=== PATIENT | female | born 1990 | race Two or more races ===

== ENCOUNTER 2018-10-17 14:03 | Emergency (ER) | payer OTHER ==
[2018-10-17 14:38] VITALS: BMI 34.2
--- NOTE | 2018-10-17 15:13 | PDOC ---
History of Present Illness - General Chief Complaint: Urinary Problem Stated Complaint: URINE IN BLOOD Time Seen by Provider: 10/17/18 15:13 History Source: Patient Exam Limitations: No Limitations - History of Present Illness Initial Comments: 28 year old female with PMH depression, SI presented to ED for nausea, vomiting , diarrhea, generalized weakness, body aches x1 week. Pt reported she ingested rat poison in a suicide attempt 09/17/18, was admitted to [facility] until when she was discharged with a nausea medication. Pt admitted to rectal bleeding (blood mixed in stool and on toilet paper), hematuria. Pt denied fever , abdominal pain, chest pain, shortness of breath. ROS General: admitted to generalized weakness. denied fever, chills. HEENT: denied sore throat, rhinorrhea, ear pain. Cardiovascular: denied chest pain, palpitations, syncope, diaphoresis. Respiratory: denied shortness of breath, cough, sputum production, hemoptysis. Gastrointestinal: admitted to nausea, rectal bleeding. denied abdominal pain, vomiting, diarrhea, constipation. Genitourinary: admitted to hematuria. denied dysuria, increased urinary frequency, urinary incontinence, flank pain. Back: denied back pain. Musculoskeletal: denied joint pain, muscle pain, joint swelling. Neurological: denied headache, dizziness, numbness, tingling, weakness. Integumentary: denied rash, laceration, abrasion. Hematologic/Lymphatic: denied bruising or bleeding. PE Constitutional: Well-nourished, Well-developed, appearing stated age. HEENT: head is normocephalic, atraumatic. EOMI. PERRLA. Neck: supple. Full ROM. Cardiovascular: regular heart rhythm. no murmurs. no pericardial friction rub. Respiratory: clear to auscultation bilaterally. no crackles, rhonchi or wheezing. no stridor. Gastrointestinal: soft, nontender. normal bowel sounds. no rebound, guarding, masses. Extremities: peripheral pulses intact. no lower extremity edema. Neurological: CN 2-12 grossly intact. moves all four extremities. Psych: awake, alert, oriented x3. follows commands. answers questions appropriately. Recta: single nontender hemorrhoid. soft stool in vault. no gross blood on glove. Pelvic: normal external genitalia. no blood in vaginal canal. no CMT. no adnexal tenderness. Past History - Past Medical History Allergies/Adverse Reactions: Allergies Allergy/AdvReac Type Severity Reaction Status Date / Time No Known Allergies Allergy Verified 10/17/18 14:38 COPD: No Psychiatric Problems: Yes (depression) - Suicide/Smoking/Psychosocial Hx Smoking History: Never smoked *Physical Exam - Vital Signs Last Vital Signs Temp Pulse Resp BP Pulse Ox 98.4 F 105 H 20 160/87 98 10/17/18 14:35 10/17/18 14:35 10/17/18 14:35 10/17/18 14:35 10/17/18 14:35 ED Treatment Course - LABORATORY CBC & Chemistry Diagram: 10/17/18 15:29 10/17/18 15:29 Medical Decision Making - Medical Decision Making 28 year old female with above PMH presented to ED for nausea/vomiting/diarrhea, generalized weakness, blood in stool, hematuria. Pt was recently admitted to [facility] for rat poison ingestion 09/17/18-. Initial Vital Signs Temp Pulse Resp BP Pulse Ox 98.4 F 105 H 20 160/87 98 10/17/18 14:35 10/17/18 14:35 10/17/18 14:35 10/17/18 14:35 10/17/18 14:35 Afebrile. Tachycardia. No tachypnea. Hypertensive. No hypoxia on room air. Labs ordered: CBC, CMP, lipase, PT/INR, serum , UA/UC, salicyclate, serum acetminophen, urine drug screen Imaging ordered: none Medications ordered: none EKG performed at 1628: rate 89, regular rhythm, normal axis, normal intervals, biphasic T V2-V3. 10/17/18 16:00 [facility] Poison Control Contacted. They recommend: CBC, CMP, Ca, Coags, EKG, serum acetaminophen, serum salicyclate , Vitamin D Looking for: -Digoxin like rat poison -Prolonged INR 10/17/18 16:32 CBC WBC 10.3 K/mm3 (4.0-10.0) H 10/17/18 15:29 RBC 4.32 M/mm3 (3.60-5.2) 10/17/18 15:29 Hgb 12.0 GM/dL (10.7-15.3) 10/17/18 15:29 Hct 35.9 % (32.4-45.2) 10/17/18 15:29 MCV 83.2 fl (80-96) 10/17/18 15:29 MCH 27.8 pg (25.7-33.7) 10/17/18 15:29 MCHC 33.5 g/dl (32.0-36.0) 10/17/18 15:29 RDW 13.6 % (11.6-15.6) 10/17/18 15:29 Plt Count 350 K/MM3 (134-434) 10/17/18 15:29 MPV 7.7 fl (7.5-11.1) 10/17/18 15:29 Absolute Neuts (auto) 7.0 K/mm3 (1.5-8.0) 10/17/18 15:29 Neutrophils % 67.6 % (42.8-82.8) 10/17/18 15:29 Lymphocytes % 24.6 % (8-40) 10/17/18 15:29 Monocytes % 6.3 % (3.8-10.2) 10/17/18 15:29 Eosinophils % 0.5 % (0-4.5) 10/17/18 15:29 Basophils % 1.0 % (0-2.0) 10/17/18 15:29 Nucleated RBC % 0 % (0-0) 10/17/18 15:29 Mild leukocytosis, no left shift. No anemia. No thrombocytopenia. CMP Sodium 140 mmol/L (136-145) 10/17/18 15:29 Potassium 3.4 mmol/L (3.5-5.1) L 10/17/18 15:29 Chloride 104 mmol/L (98-107) 10/17/18 15:29 Carbon Dioxide 30 mmol/L (21-32) 10/17/18 15:29 Anion Gap 6 MMOL/L (8-16) L 10/17/18 15:29 BUN 12.3 mg/dL (7-18) 10/17/18 15:29 Creatinine 0.8 mg/dL (0.55-1.3) 10/17/18 15:29 Est GFR (CKD-EPI)AfAm 114.66 10/17/18 15:29 Est GFR (CKD-EPI)NonAf 98.93 10/17/18 15:29 Random Glucose 99 mg/dL (74-106) 10/17/18 15:29 Calcium 9.4 mg/dL (8.5-10.1) 10/17/18 15:29 Total Bilirubin 0.3 mg/dL (0.2-1) 10/17/18 15:29 AST 14 U/L (15-37) L 10/17/18 15:29 ALT 17 U/L (13-61) 10/17/18 15:29 Alkaline Phosphatase 69 U/L (45-117) 10/17/18 15:29 Total Protein 7.5 g/dl (6.4-8.2) 10/17/18 15:29 Albumin 4.2 g/dl (3.4-5.0) 10/17/18 15:29 Lipase 167 U/L (73-393) 10/17/18 15:29 Serum , Qual Negative 10/17/18 15:29 No clinically significant electrolyte abnormalities. No anion gap. No GIACOMO. No transaminitis. Lipase wnl. Serum testing negative. Serum acetaminophen and salicyclate level negative. 10/17/18 16:49 Urine Test Results Urine Color Yellow 10/17/18 15:43 Urine Appearance Turbid 10/17/18 15:43 Urine pH 7.0 (5.0-8.0) 10/17/18 15:43 Ur Specific [place] 1.025 (1.010-1.035) 10/17/18 15:43 Urine Protein Negative (NEGATIVE) 10/17/18 15:43 Urine Glucose (UA) Negative (NEGATIVE) 10/17/18 15:43 Urine Ketones Negative (NEGATIVE) 10/17/18 15:43 Urine Blood Negative (NEGATIVE) 10/17/18 15:43 Urine Nitrite Negative (NEGATIVE) 10/17/18 15:43 Urine Bilirubin Negative (NEGATIVE) 10/17/18 15:43 Ur Leukocyte Esterase Negative (NEGATIVE) 10/17/18 15:43 Negative for UTI. Negative for hematuria. Negative for proteinuria. 10/17/18 17:06 UDS positive for MDMA. Pt informed of results. Pt informed to F/U with PCP promptly. Pt expressed understanding. Pt discharged. *DC/Admit/Observation/Transfer Diagnosis at time of Disposition: Generalized body aches, Nausea vomiting and diarrhea - Discharge Dispostion Disposition: HOME Condition at time of disposition: Improved Decision to Admit order: No - Referrals - Patient Instructions Printed Discharge Instructions: DI for Suicidal Ideation-Adult, Nausea and Vomiting-Adult Additional Instructions: Your lab work was normal. Follow up with your primary care doctor within 3 days. Your care is not complete until you follow up. Bring all paperwork given to you today to your appointment. Return to the Emergency Department for increasing pain, shortness of breath, chest pain, easy bruising, bleeding, lightheadedness, passing out, fever, vomiting, suicidal thoughts, or any other new, worsening or concerning symptoms. Tu trabajo de laboratorio fue normal. Bindu un seguimiento con mixon mdico de atencin primaria dentro de los 3 mcdonald. Mixon atencin no estar completa hasta que realice el seguimiento. Traiga todos los documentos que le entregaron hoy a mixon brianna. Regrese al departamento de emergencias para aumentar el dolor, falta de aliento , dolor en el pecho, moretones fciles, sangrado, aturdimiento, desmayo, fiebre , vmitos, pensamientos suicidas o cualquier otro sntoma nuevo, que empeore o se relacione Print Language: MONTENEGRIN - Post Discharge Activity Forms/Work/School Notes: Back to Work
[2018-10-17] MEDS ORDERED: SODIUM CHLORIDE 1,000 ML IV STA (15:14)
[2018-10-17] MEDS ORDERED: ACETAMINOPHEN 1000 MG/100 ML VIAL (NON FORMULARY) IVPB ONE (15:14)
[2018-10-17] MEDS ORDERED: ACETAMINOPHEN INJECTION 100 ML IVPB ONE (15:28)
[2018-10-17 15:39] LABS: EOS % 0.5 % (0-4.5); HEMATOCRIT 35.9 % (32.4-45.2); LYMPH % 24.6 % (8-40); MCH 27.8 pg (25.7-33.7); MCHC 33.5 g/dl (32.0-36.0); MEAN CELL VOLUME 83.2 fl (80-96); MEAN PLT VOLUME 7.7 fl (7.5-11.1); MONO % 6.3 % (3.8-10.2); NEUT % 67.6 % (42.8-82.8); PLATELET COUNT 350 K/MM3 (134-434); RBC 4.32 M/mm3 (3.60-5.2); RDW 13.6 % (11.6-15.6); WHITE BLOOD COUNT 10.3 K/mm3 (4.0-10.0)
[2018-10-17 16:03] LABS: ALBUMIN 4.2 g/dl (3.4-5.0); BILIRUBIN,TOTAL 0.3 mg/dL (0.2-1); BLOOD UREA NITROGEN 12.3 mg/dL (7-18); CALCIUM 9.4 mg/dL (8.5-10.1); CREATININE 0.8 mg/dL (0.55-1.3); POTASSIUM 3.4 mmol/L (3.5-5.1); TOT PROT 7.5 g/dl (6.4-8.2)
[2018-10-17 16:17] LABS: PROTHROMBIN TIME (PATIENT) 11.8 SEC (9.7-13.0)
[2018-10-17 16:46] LABS: COCAINE, UR NEGATIVE ng/ml (CUTOFF=300); METHADONE, UR NEGATIVE ng/ml (CUTOFF=300); OPIATES, URI NEGATIVE ng/ml (CUTOFF=300); PHENCYCLIDINE,URINE NEGATIVE ng/ml (CUTOFF=25); URINE AMPHETAMINES NEGATIVE ng/ml (CUTOFF=500); URINE BARBITURATES NEGATIVE ng/ml (CUTOFF=200); URINE BENZODIAZEPINES NEGATIVE ng/ml (CUTOFF=200)
[2018-10-17 16:48] LABS: URINE APPEARANCE TURBID; URINE BILIRUBIN NEGATIVE (NEGATIVE); URINE COLOR YELLOW; URINE GLUCOSE (UA) NEGATIVE (NEGATIVE); URINE KETONE NEGATIVE (NEGATIVE); URINE LEUK ESTERASE NEGATIVE (NEGATIVE); URINE NITRITE NEGATIVE (NEGATIVE); URINE PROTEIN NEGATIVE (NEGATIVE)
--- NOTE | 2018-10-17 17:05 | PDOC ---
Documentation entered by Antonio Barbosa SCRIBE, acting as scribe for Julieta Garcia MD. Julieta Garcia MD: This documentation has been prepared by the Familia salcedo Xhesika, SCRIBE, under my direction and personally reviewed by me in its entirety. I confirm that the documentation accurately reflects all work, treatment, procedures, and medical decision making performed by me. Attending Attestation - Resident Resident Name: EllieFlorina - ED Attending Attestation I have performed the following: I have examined & evaluated the patient, The case was reviewed & discussed with the resident, I agree w/resident's findings & plan, Exceptions are as noted - HPI HPI: 10/17/18 15: 28 year old female, Persian speaking, with a significant PMH of depression and SI who presents to the emergency department for 1 week of nausea, vomiting, diarrhea, generalized weakness, and body aches. Patient states she ingested rat poison in a suicide attempt on 09/17/18, was seen and admitted to [facility] and was discharged on 10/09/18. Patient states she is now endorsing rectal bleeding in her stool and urine. Patient denies any other bleeding. denies any current SI or HI states she is recuperating with her kids. no flank pain, no abd pain. just generalized achiness. The patient denies chest pain, shortness of breath, headache and dizziness. Denies fever, chills, cough and constipation. Denies dysuria, frequency, urgency. Allergies: NKDA 10/17/18 17:02 - Physicial Exam PE: 10/17/18 17:02 awake alert lungs clear bilat heart rrr no mrg abd soft nt nd ext wwp no edema. no calf tenderness. nuero alert oriented x 3. no si no hi. speech clear calm, mild flat affect, but smiles when talking about kids. - Medical Decision Making 10/17/18 17:03 28 yo F h/o rat poison ingestion 09/17 dc 10/09 here with persistant hematuria. feeling tired and myalgia. plan labs ua guiac. pt no signs of suicidality. labs unremarkable. coags geraldo. guiac negative. urine negative for blod will perform pelvic exam r/o vaginal bleeding. negative. d/w poison control will likely dc home. Heart Score/ECG Review #1 General ECG Interpretation: Sinus Rhythm, Normal Rate, Normal Intervals, No acute ischemic changes
[2018-10-17 17:41] VITALS: BP 146/93; PULSE 81; TEMP 98.5
--- NOTE | 2018-10-18 09:39 | EKG ---
Test Reason : Blood Pressure : / mmHG Vent. Rate : 089 BPM Atrial Rate : 089 BPM P-R Int : 184 ms QRS Dur : 076 ms QT Int : 378 ms P-R-T Axes : 062 024 030 degrees QTc Int : 459 ms NORMAL SINUS RHYTHM NORMAL ECG NO PREVIOUS ECGS AVAILABLE Confirmed by JESUS LUCAS MD ([id number]) on 10/18/2018 9:38:52 AM Referred By: Confirmed By:JESUS LUCAS MD
== END 2018-10-17 17:40 | disposition home or self-care (01) ==
LOC: JER 14:03
PROC: 3E0337Z Introduction of Electrolytic and Water Balance Substance into Peripheral Vein, Percutaneous Approach (ICD-10-PCS; principal; 2018-10-17)
PROC: 3E033NZ Introduction of Analgesics, Hypnotics, Sedatives into Peripheral Vein, Percutaneous Approach (ICD-10-PCS; 2018-10-17)
DX: R11.2 Nausea with vomiting, unspecified (principal); R19.7 Diarrhea, unspecified; R52 Pain, unspecified; Z91.5 Personal history of self-harm
CPT/HCPCS: 36415; 80053; 80307; 81003; 82272; 82306; 83690; 84703; 85025; 85610; 85730; 86850; 86900; 86901; 87086; 93005; 93010; 96365; 96374; 99283-25; G0480; J0131; J7030

== ENCOUNTER 2021-12-03 07:29 | Emergency (ER) | payer OTHER ==
[2021-12-03 08:00] VITALS: BP 118/76; PULSE 77; RESP 18; TEMP 98.1; BMI 37.1
[2021-12-03] MEDS ORDERED: ACETAMINOPHEN 500 MG TABLET (FP) PO ONE (08:30)
[2021-12-03] MEDS ORDERED: ACETAMINOPHEN 325 MG TABLET (FP) ONE (08:39)
== END 2021-12-03 11:04 | disposition home or self-care (01) ==
LOC: JER 07:29
DX: M25.561 Pain in right knee (principal)
CPT/HCPCS: 73564-TC-RT-FY; 84703; 99284-25

== ENCOUNTER 2022-02-16 01:06 | Emergency (ER) | payer OTHER ==
[2022-02-16 01:27] VITALS: BP 140/76; PULSE 88; RESP 18; TEMP 97.8; BMI 37.1
== END 2022-02-16 02:40 | disposition home or self-care (01) ==
LOC: JER 01:06
DX: S90.32XA Contusion of left foot, initial encounter (principal); W20.8XXA Other cause of strike by thrown, projected or falling object, initial encounter
CPT/HCPCS: 73630-TC-LT; 99283-25

== ENCOUNTER 2022-03-15 23:58 | Emergency (ER) | payer OTHER ==
[2022-03-16 00:14] VITALS: BP 147/90; PULSE 83; RESP 15; TEMP 98.5; BMI 36.6
[2022-03-16 01:41] LABS: BASO % 0.5 % (0-2.0); EOS % 0.4 % (0-4.5); HEMATOCRIT 32.8 % (32.4-45.2); HEMOGLOBIN 10.4 GM/dL (10.7-15.3); LYMPH % 28.2 % (8-40); MCH 23.8 pg (25.7-33.7); MCHC 31.7 g/dl (32.0-36.0); MEAN CELL VOLUME 75.2 fl (80-96); MEAN PLT VOLUME 8.2 fl (7.5-11.1); MONO % 10.2 % (3.8-10.2); NEUT % 60.7 % (42.8-82.8); PLATELET COUNT 351 10^3/uL (134-434); RBC 4.36 M/mm3 (3.60-5.2); RDW 16.1 % (11.6-15.6); WHITE BLOOD COUNT 6.8 K/mm3 (4.0-10.0)
[2022-03-16 01:45] LABS: EPI CELLS 12 /uL (0-25.1); HYALINE CASTS 0 /uL (0-3.1); PH,URINE 7.5 (5.0-8.0); URINE APPEARANCE CLOUDY; URINE BACTERIA 450 /uL (0-1359); URINE BILIRUBIN NEGATIVE (NEGATIVE); URINE COLOR YELLOW; URINE GLUCOSE (UA) NEGATIVE (NEGATIVE); URINE KETONE NEGATIVE (NEGATIVE); URINE LEUK ESTERASE NEGATIVE (NEGATIVE); URINE NITRITE NEGATIVE (NEGATIVE); URINE PROTEIN NEGATIVE (NEGATIVE); URINE RBC 10 /uL (0-23.9); URINE WBC 10 /uL (0-25.8)
[2022-03-16 02:03] LABS: ALBUMIN 3.7 g/dl (3.4-5.0); BLOOD UREA NITROGEN 8.6 mg/dL (7-18); CALCIUM 9.3 mg/dL (8.5-10.1)
[2022-03-16 02:05] LABS: CREATININE 0.6 mg/dL (0.55-1.3)
[2022-03-16 02:07] LABS: BILIRUBIN,TOTAL 0.4 mg/dL (0.2-1); TOT PROT 7.3 g/dl (6.4-8.2)
[2022-03-16 02:23] LABS: HCG,QUALITATIVE URINE Negative
[2022-03-16] MEDS ORDERED: NITROFURANTOIN MACROCRYSTAL 50 MG CAPSULE (FP) ONE (03:43)
[2022-03-16] MEDS ORDERED: NITROFURANTOIN MACROCRYSTAL 50 MG CAPSULE (FP) PO SCH (03:45)
== END 2022-03-16 04:19 | disposition home or self-care (01) ==
LOC: JER 23:58
DX: N39.0 Urinary tract infection, site not specified (principal)
CPT/HCPCS: 36415; 80053; 81003; 83690; 83735; 84703; 85025; 87086; 99283-25

== ENCOUNTER 2022-07-30 08:02 | Day surgery (SDC) | payer OTHER ==
[2022-07-30 08:11] VITALS: BMI 36.6
[2022-07-30] MEDS ORDERED: SODIUM CHLORIDE 1,000 ML IV STA (08:48)
[2022-07-30] MEDS ORDERED: ONDANSETRON 4 MG/2 ML VIAL IVPUSH ONE (08:48)
[2022-07-30] MEDS ORDERED: MAG HYDROX/AL HYDROX/SIMETH 30 ML UNIT-DOSE CUP PO ONE (08:48)
[2022-07-30] MEDS ORDERED: ACETAMINOPHEN 1000 MG/100 ML BAG IVPB ONE (08:48)
[2022-07-30] MEDS ORDERED: FAMOTIDINE 20 MG/50 ML IVPB 20 MG/50 ML MG IVPB ONE ×2 (08:49→09:25)
[2022-07-30] MEDS ORDERED: MAG HYDROX/AL HYDROX/SIMETH 30 ML UNIT-DOSE CUP ONE (09:25)
[2022-07-30] MEDS ORDERED: ONDANSETRON 4 MG/2 ML VIAL ONE ×2 (09:25→19:21)
[2022-07-30] MEDS ORDERED: ACETAMINOPHEN INJECTION 100 ML IVPB ONE ×2 (09:25→20:49)
[2022-07-30 09:52] LABS: URINE APPEARANCE CLEAR; URINE BILIRUBIN NEGATIVE (NEGATIVE); URINE COLOR YELLOW; URINE GLUCOSE (UA) NEGATIVE (NEGATIVE); URINE KETONE NEGATIVE (NEGATIVE); URINE LEUK ESTERASE NEGATIVE (NEGATIVE); URINE NITRITE NEGATIVE (NEGATIVE); URINE PROTEIN NEGATIVE (NEGATIVE); URINE UROBILINOGEN 0.2 mg/dL (0.2-1.0)
[2022-07-30 09:58] LABS: BASO % 0.4 % (0-2.0); EOS % 0.7 % (0-4.5); HEMATOCRIT 33.4 % (32.4-45.2); HEMOGLOBIN 10.5 GM/dL (10.7-15.3); LYMPH % 32.5 % (8-40); MCH 23.5 pg (25.7-33.7); MCHC 31.5 g/dl (32.0-36.0); MEAN CELL VOLUME 74.6 fl (80-96); MEAN PLT VOLUME 8.2 fl (7.5-11.1); MONO % 7.2 % (3.8-10.2); NEUT % 59.2 % (42.8-82.8); PLATELET COUNT 374 10^3/uL (134-434); RBC 4.47 M/mm3 (3.60-5.2); RDW 15.8 % (11.6-15.6); WHITE BLOOD COUNT 9.5 K/mm3 (4.0-10.0)
[2022-07-30 10:02] LABS: POTASSIUM 3.8 mmol/L (3.5-5.1)
[2022-07-30 10:04] LABS: CALCIUM 9.2 mg/dL (8.5-10.1)
[2022-07-30 10:05] LABS: ALBUMIN 3.9 g/dl (3.4-5.0)
[2022-07-30 10:08] LABS: CREATININE 0.5 mg/dL (0.55-1.3)
[2022-07-30 10:09] LABS: TOT PROT 7.4 g/dl (6.4-8.2)
[2022-07-30 10:10] LABS: BILIRUBIN,TOTAL 0.4 mg/dL (0.2-1)
[2022-07-30 10:11] LABS: BLOOD UREA NITROGEN 9.4 mg/dL (7-18)
[2022-07-30] MEDS ORDERED: CEFTRIAXONE 1,000 MG in DEXTROSE 5%-WATER - 50 ML IVPB ONE (11:55)
[2022-07-30] MEDS ORDERED: CEFTRIAXONE 1 GM/50 ML BAG ONE (12:20)
[2022-07-30] MEDS ORDERED: ONDANSETRON 4 MG/2 ML VIAL IVPUSH PRN ×2 (12:41→20:48)
[2022-07-30] MEDS ORDERED: LACTATED RINGERS SOLUTION 1,000 ML/1,000 ML INFUS.BAG IV SCH (12:45)
[2022-07-30] MEDS ORDERED: DEXAMETHASONE SOD PHOSPHATE 4 MG/1 ML VIAL ONE (19:21)
[2022-07-30] MEDS ORDERED: PROPOFOL 20 ML ONE (19:21)
[2022-07-30] MEDS ORDERED: KETOROLAC TROMETHAMINE 30 MG/1 ML VIAL ONE (19:22)
[2022-07-30] MEDS ORDERED: oxyCODONE HCL 5 MG TABLET PO PRN ×2 (19:30→20:48)
[2022-07-30] MEDS ORDERED: LACTATED RINGERS SOLUTION 1,000 ML IV SCH ×2 (19:30→20:48)
[2022-07-30] MEDS ORDERED: SUGAMMADEX SODIUM 200 MG/2 ML VIAL ONE (19:43)
[2022-07-30] MEDS ORDERED: ROCURONIUM BROMIDE 50 MG/5 ML SYRINGE ONE (19:43)
[2022-07-30] MEDS ORDERED: BUPIVACAINE HCL/PF 0.5% (5MG/ML) 10 ML VIAL IJ ONE ×2 (19:58)
[2022-07-30] MEDS: ACETAMINOPHEN 1000 MG/100 ML BAG IVPB SCH ×2 (20:48→20:53)
[2022-07-30] MEDS: HEPARIN NA (PORCINE) 5,000 UNITS/ML 1ML VIAL SQ SCH (23:39)
[2022-07-31] MEDS: ACETAMINOPHEN 1000 MG/100 ML BAG IVPB SCH (03:00)
[2022-07-31] MEDS: KETOROLAC TROMETHAMINE 15 MG/ML VIAL IVPUSH SCH ×2 (06:54→12:38)
[2022-07-31 07:46] LABS: BASO % 0.2 % (0-2.0); HEMATOCRIT 32.4 % (32.4-45.2); HEMOGLOBIN 10.2 GM/dL (10.7-15.3); LYMPH % 8.9 % (8-40); MCH 23.7 pg (25.7-33.7); MCHC 31.4 g/dl (32.0-36.0); MEAN CELL VOLUME 75.4 fl (80-96); MEAN PLT VOLUME 8.2 fl (7.5-11.1); MONO % 2.1 % (3.8-10.2); NEUT % 88.8 % (42.8-82.8); PLATELET COUNT 360 10^3/uL (134-434); RDW 16.1 % (11.6-15.6); WHITE BLOOD COUNT 10.8 K/mm3 (4.0-10.0)
[2022-07-31 07:55] LABS: POTASSIUM 4.3 mmol/L (3.5-5.1)
[2022-07-31 07:58] LABS: BLOOD UREA NITROGEN 4.8 mg/dL (7-18)
[2022-07-31 08:01] LABS: CREATININE 0.5 mg/dL (0.55-1.3)
[2022-07-31] MEDS ORDERED: ACETAMINOPHEN 500 MG TABLET (FP) PO SCH (10:00)
[2022-07-31] MEDS: HEPARIN NA (PORCINE) 5,000 UNITS/ML 1ML VIAL SQ SCH (10:02)
[2022-07-31 13:33] VITALS: BP 139/65; PULSE 71; RESP 20; TEMP 97.9
== END 2022-07-31 14:09 | disposition home or self-care (01) ==
LOC: JER 08:02 → JASUSAT 11:56 → SUATTDRO 11:56 → J7W 18:43 → JASUSAT 07-31 14:09
PROVIDERS: ATTEND Internal Medicine
PROC: 0FT44ZZ Resection of Gallbladder, Percutaneous Endoscopic Approach (ICD-10-PCS; principal; 2022-07-30 12:30)
DX: K80.10 Calculus of gallbladder with chronic cholecystitis without obstruction (principal)
CPT/HCPCS: 36415; 76705-TC; 80048; 80053; 81003; 83690; 84703; 85025; 86850; 86900; 86901; 87086; 88304-TC; 94760; 99285-25; J1644

== ENCOUNTER 2023-09-17 15:12 | Emergency (ER) | payer OTHER ==
[2023-09-17 15:21] VITALS: BP 120/79; PULSE 82; RESP 20; TEMP 98.6; BMI 36.6
[2023-09-17] MEDS ORDERED: ACETAMINOPHEN INJECTION 100 ML IVPB ONE (17:31)
[2023-09-17] MEDS ORDERED: FAMOTIDINE 20 MG/50 ML IVPB 20 MG/50 ML MG IVPB ONE (17:31)
[2023-09-17 17:45] LABS: EPI CELLS 27 /uL (0-25.1); HYALINE CASTS 0 /uL (0-3.1); PH,URINE 7.5 (5.0-8.0); URINE APPEARANCE CLOUDY; URINE BACTERIA 1386 /uL (0-1359); URINE BILIRUBIN NEGATIVE (NEGATIVE); URINE COLOR YELLOW; URINE GLUCOSE (UA) NEGATIVE (NEGATIVE); URINE KETONE NEGATIVE (NEGATIVE); URINE LEUK ESTERASE NEGATIVE (NEGATIVE); URINE NITRITE NEGATIVE (NEGATIVE); URINE PROTEIN NEGATIVE (NEGATIVE); URINE RBC 12 /uL (0-23.9); URINE WBC 11 /uL (0-25.8)
[2023-09-17 17:46] LABS: HCG,QUALITATIVE URINE Negative
[2023-09-17] MEDS: SODIUM CHLORIDE 0.9% 500 ML INFUS.BAG IV ONE (17:48)
[2023-09-17] MEDS: ACETAMINOPHEN 1000 MG/100 ML BAG IVPB ONE (17:48)
[2023-09-17] MEDS: FAMOTIDINE 20 MG/50 ML IVPB 20 MG/50 ML MG IVPB ONE (17:49)
[2023-09-17 17:53] LABS: *STOOL FOR OCCULT BLOOD POSITIVE (NEGATIVE)
[2023-09-17 17:57] LABS: BASO % 0.6 % (0-2.0); EOS % 1.3 % (0-4.5); HEMATOCRIT 34.1 % (32.4-45.2); LYMPH % 27.4 % (8-40); MCHC 32.1 g/dl (32.0-36.0); MEAN CELL VOLUME 74.7 fl (80-96); MEAN PLT VOLUME 7.7 fl (7.5-11.1); NEUT % 64.7 % (42.8-82.8); PLATELET COUNT 337 10^3/uL (134-434); RBC 4.57 M/mm3 (3.60-5.2); RDW 17.2 % (11.6-15.6); WHITE BLOOD COUNT 8.7 K/mm3 (4.0-10.0)
[2023-09-17 18:16] LABS: POTASSIUM 4.4 mmol/L (3.5-5.1)
[2023-09-17 18:18] LABS: CALCIUM 9.8 mg/dL (8.5-10.1)
[2023-09-17 18:19] LABS: ALBUMIN 3.8 g/dl (3.4-5.0); BLOOD UREA NITROGEN 9.6 mg/dL (7-18)
[2023-09-17 18:22] LABS: CREATININE 0.7 mg/dL (0.55-1.3)
[2023-09-17 18:23] LABS: BILIRUBIN,TOTAL 0.4 mg/dL (0.2-1); TOT PROT 7.2 g/dl (6.4-8.2)
== END 2023-09-17 21:32 | disposition home or self-care (01) ==
LOC: JER 15:12
PROC: 3E033GC Introduction of Other Therapeutic Substance into Peripheral Vein, Percutaneous Approach (ICD-10-PCS; principal; 2023-09-17)
PROC: 3E033NZ Introduction of Analgesics, Hypnotics, Sedatives into Peripheral Vein, Percutaneous Approach (ICD-10-PCS; 2023-09-17)
DX: R10.13 Epigastric pain (principal); R19.7 Diarrhea, unspecified
CPT/HCPCS: 36415; 74177-TC; 80053; 81003; 82272; 83690; 84703; 85025; 87045; 87046; 87086; 87209; 99285-25; J0131